=== PATIENT | male | born 1950 | race Caucasian/White ===

== ENCOUNTER → 2021-04-15 | Outpatient (CLI) | payer OTHER ==
[~2021-04-15] MED LIST: HIGH BLOOD PRESSURE
== END ==
LOC: M.CT 12:51
PROVIDERS: ATTEND Nurse Practitioner Family
DX: Z13.6 Encounter for screening for cardiovascular disorders (principal); I25.10 Atherosclerotic heart disease of native coronary artery without angina pectoris

== ENCOUNTER 2021-05-11 08:51 | Observation (INO) | payer MEDICARE, OTHER ==
[2021-05-11] VITALS (9 sets, daily range): BP systolic 123–167; BP diastolic 62–88
[~2021-05-11] VITALS: Ht 182.9 cm; Wt 104.3 kg
[~2021-05-11 08:51] MED LIST changes: +AMARYL4 MG PO; +ASA81BEC PO; +COZAAR100 MG PO; +EC-NAPROSYN500 M1 PO; +FISH OIL 1,0001 EAC9 PO; +MELATONIN10 M3 PO; +METFORMIN HCL1000 MG PO; +TOPROL XL50 MG PO
[2021-05-11 09:48] LABS: HEMATOCRIT 42.9 % (42.0-52.0); HEMOGLOBIN 14.9 gm/dL (14.0-18.0); MCH 31.2 pg (26.0-34.0); MCHC 34.7 g/dL (28.0-37.0); MCV 89.9 fL (80.0-100.0); MPV 7.7 fl. (7.2-11.1); RBC 4.77 mil/uL (4.50-6.00); RDW-CV 13.1 % (10.5-14.5); WBC 8.5 thou/uL (4.0-11.0)
[2021-05-11 10:04] LABS: ANION GAP 7 mmol/L (7-16); BUN 16 mg/dL (7-18); CALCIUM 9.2 mg/dL (8.5-10.1); CHLORIDE 100 mmol/L (98-107); CO2 29 mmol/L (21-32); CREATININE 0.9 mg/dL (0.6-1.3); GLUCOSE 186 mg/dL (70-99); SODIUM 136 mmol/L (136-145)
[2021-05-11 10:09] LABS: ALBUMIN 4.2 g/dL (3.4-5.0); ALKALINE PHOSPHATASE 68 U/L (46-116); CHOLESTEROL 186 mg/dL (<200); HDL CHOLESTEROL 53 mg/dL (>40); LDL CHOLESTEROL 111 mg/dL (<100); SERUM ASSESSMENT Clear; SGOT 23 U/L (15-37); SGPT 51 U/L (30-65); TC:HDL 3.5 Ratio (Not establshd); TOTAL BILIRUBIN 0.3 mg/dL (<0.1-1.0); TOTAL PROTEIN 7.9 g/dL (6.4-8.2); TRIGLYCERIDE 114 mg/dL (<150); VLDL 23 mg/dL (<40)
[2021-05-11 10:38] LABS: APTT 27.4 Seconds (25.0-31.3); PROTIME 10.3 Seconds (9.20-11.50)
--- NOTE | 2021-05-11 13:39 | CARD ---
[address] [address] CARDIAC CATH REPORT Name: MARQUES DUNN Room: [address] M.R.#: [id number] Admission: 05/11/21 Attend Phys: Tonny Gifford MD, Discharge: Date of : 54 Report #: [id number] THIS REPORT FOR: cc: CROW STEWART DEBRA L FNP Holkins, John M. MD [facility] ~ APPROVED REPORT Study performed: 05/11/2021 09:42:32 Patient Details Patient Status: Out-Patient Room #: The patient is a 70 year-old male Event Personnel Tonny Gifford Consumer Services Advisor, Christine Herr RN RN, Jennie Moyer PATROL COMMUNITY SERVICE OFFICER Scrub, Bradly Duque PATROL COMMUNITY SERVICE OFFICER Monitor, Abby Pedroza, SREE Monitor Procedures Performed Left heart catheterization left ventriculography and selective coronary arteriography and percutaneous coronary intervention with angioplasty atherotomy/atherectomy and stenting of the mid LAD Indication Dyspnea, Chest pain, Markedly increased coronary calcium score on chest CT Risk Factors Hypertension, Diabetes Admission/Lab Medications/Medications given during procedure 0.9% Sodium Chloride IV 75 ml per hr, Oxygen Nasal cannula 2 l per min, Lidocaine Subcut 10 ml, Angiomax IV 16 ml, Angiomax Drip IV 36.57 ml per hr, 0.9% Sodium Chloride IV 125 ml per hr, Hydralazine (Apresoline) IV 10 mg, Aspirin PO 162 mg, Effient PO 60 mg Procedure Narrative The patient was brought electively to the Cardiac Catheterization Laboratory and was prepped and draped in a sterile manner. The right femoral was infiltrated with 2% Lidocaine subcutaneous anesthesia. A [employer] 6 FR sheath was inserted into the right femoral artery. Coronary angiography was performed [place] [address] CARDIAC CATH REPORT Name: MARQUES DUNN Room: [address] King#: [id number] Admission: 05/11/21 Attend Phys: Tonny Gifford MD, Discharge: Date of : 54 Report #: [id number] catheters. The right coronary system was accessed and visualized with a Diagnostic 6Fr JR4 catheter. The left coronary system was accessed and visualized with a Diagnostic 6Fr JL4 catheter. The left ventricle was accessed and visualized with a Diagnostic straight pigtail catheter. Left ventricular/Aortic Valve gradient assessed via catheter pullback. Left ventriculogram was performed in MATA projection. Closure device was deployed with a Fr Angioseal STS 6Fr. The patient tolerated the procedure well and there were no complications associated with the procedure. There was no hematoma. Intraoperative Conscious Sedation Sedation start time: 1016 Case end Time: 1136 Fentanyl 25 mcg Versed 2 mg Fluoro Time: 15.3 minutes Dose: DAP [id number] cGycm2 2678 mGy Contrast Type and Amount: Visipaque 250 mL Coronary Angiography The patient's coronary anatomy is left dominant. Diagnostic Cath Left Main 0% narrowing LAD 40% proximal narrowing with 90% mid vessel stenosis and 50% distal LAD narrowing Diagonal 1 80% narrowing in the midportion of the small first diagonal Circumflex Large dominant vessel with 70% tubular first marginal narrowing and 80% narrowing of the midportion of the posterior descending branch Right Coronary Small nondominant vessel with 0% narrowing Left Ventriculography The left ventricle is normal in size with normal contractility. The left ventricular ejection fraction is estimated to be 65%. Left ventricular wall motion abnormalities are not present. There is no mitral insufficiency. Hemodynamics The aortic pressure is 102/52 mmHg with a mean of 66 mmHg. The left ventricular pressure is 106/-3 mmHg with a mean of mmHg. The left ventricular end diastolic pressure is 6 mmHg. There was no gradient across the aortic [place] [address] CARDIAC CATH REPORT Name: MARQUES DUNN [address] M#: [id number] Admission: 05/11/21 Attend Phys: Tonny Gifford MD, Discharge: Date of : 54 Report #: [id number] PCI Technique Lesion Anticoagulation was achieved with Angiomax. Patient was preloaded with Angiomax IV 16 ml. Percutaneous coronary intervention was performed on the mid left anterior descending artery segment. The lesion stenosis prior to intervention was 90% with JERMAINE 3 flow. A 6FR LAUNCHER EBU 3.5 Guide Catheter was used to engage the ostium. A IG: BMW 190cm Interventional Guidewire was used to cross the lesion. BALLOON DILATION A Balloon catheter NC Trek RX 2.5 X 12 was inserted and inflated up to 18.00atm for 18seconds. Additional Inflation: 20.00atm for 13seconds. Additional Inflation: 18.00atm for 9seconds. Additional Inflation: 20.00 john for 11 seconds. An Angiosculpt PTCA 2.5 X 10mm cutting balloon was inserted and inflated up to 14 john for 30 seonds. STENT DEPLOYMENT A stent [place] RX Stent 2.5X22mm was inserted and inflated up to 12.00atm for 8seconds. Additional Inflation: 16.00atm for 8seconds. Additional Inflation: 17.00atm for 9seconds. Final angiography reveals 0 % stenosis with JERMAINE 3 flow. Conclusion 1. Significant multivessel coronary artery disease characterized by the following: A 40% proximal LAD narrowing with 90% calcified mid vessel stenosis and 50% distal LAD narrowing B large dominant circumflex with 70% tubular narrowing of the the first marginal branch and 80% stenosis of the midportion of the posterior descending branch of the dominant circumflex 2. Normal left ventricular systolic function estimated ejection fraction being 65% 3 normal left-sided hemodynamic study 4. Successful PCI with angioplasty atherotomy/atherectomy and deployment of a drug-eluting stent at the site of 90% calcified mid LAD stenosis with 0% residual narrowing and JERMAINE-3 [place] [address] CARDIAC CATH REPORT Name: MARQUES DUNN SUSI Room: [address] Tanner M.R.#: [id number] Admission: 05/11/21 Attend Phys: Tonny Gifford MD, Discharge: Date of : 54 Report #: [id number] vessel Recommendations Cardiac Risk Reduction Program Aggressive Medical Therapy Medications Administered Aspirin (any) Prasugrel Diagnostic Cath Approved by: Tonny Gifford MD Date/Time: 05/11/2021 13:35:18 <ELECTRONICALLY SIGNED> By: Tonny Gifford MD, FACC 05/11/21 1339 38 1339Tonny Gifford MD, FACC /INF
--- NOTE | 2021-05-11 13:57 | EKG ---
[place] [address] ELECTROCARDIOGRAM REPORT Name: SHAUNMARQUESADAM BEASLEYY Room: [address] M.R.#: [id number] Admission: 05/11/21 Attend Phys: Gurdeep Miles Discharge: Date of : 54 Date of Service: 05/11/21 0938 Report #: [id number] THIS REPORT FOR: //name// [facility] Test Date: 2021-05-11 Test Time: 09:38:03 Pat Name: MARQUES DUNN Department: Room: [facility] Gender: M Campaign Marketing Manager: : 1950 Requested By: Tonny Gifford Order Number: [id number] MD: Tonny Gifford Measurements Intervals [place] Rate: 70 P: 28 NC: 160 QRS: -13 QRSD: 106 T: 62 QT: 378 QTc: 408 Interpretive Statements Sinus rhythm Probable left atrial enlargement Minimal ST elevation, anterior leads No previous ECG available for comparison Electronically Signed On 05-11-2021 13:56:57 SHOE LASTER by Tonny Gifford [email or web address] <ELECTRONICALLY SIGNED> By: Tonny Gifford MD, [facility] 05/11/21 1356 0938 0938 Tonny Gifford MD, [facility] /EPI
--- NOTE | 2021-05-11 14:06 | EKG ---
[place] [address] ELECTROCARDIOGRAM REPORT Name: SHAUNMARQUES GOLDMAN Room: [address] M.R.#: [id number] Admission: 05/11/21 Attend Phys: Gurdeep Miles Discharge: Date of : 54 Date of Service: 05/11/21 1152 Report #: [id number] THIS REPORT FOR: //name// [facility] Test Date: 2021-05-11 Test Time: 11:52:00 Pat Name: MARQUES DUNN Department: Room: [facility] Gender: M Elevator Dispatcher: JOSE GUADALUPE : 1950 Requested By: Tonny Gifford Order Number: [id number] Reading MD: Tonny Gifford Measurements Intervals [place] Rate: 70 P: 29 SD: 159 QRS: -8 QRSD: 108 T: 65 QT: 395 QTc: 427 Interpretive Statements Sinus rhythm Probable left atrial enlargement Minimal ST elevation, anterior leads compatible with early repolarization and normal variant Compared to ECG 05/11/2021 09:38:03 No significant changes Electronically Signed On 05-11-2021 14:06:49 HYDROELECTRIC OPERATOR by Tonny Gifford [email or web address] <ELECTRONICALLY SIGNED> By: Tonny Gifford MD, FAC 05/11/21 1406 1152 1152 Tonny Gifford MD, FAC /EPI
[2021-05-12] VITALS: BP 128/64
[2021-05-12 04:00] VITALS: BP 124/75
[2021-05-12 04:10] LABS: HEMATOCRIT 39.5 % (42.0-52.0); HEMOGLOBIN 13.6 gm/dL (14.0-18.0); MCH 31.1 pg (26.0-34.0); MCHC 34.3 g/dL (28.0-37.0); MCV 90.5 fL (80.0-100.0); MPV 7.7 fl. (7.2-11.1); RBC 4.37 mil/uL (4.50-6.00); RDW-CV 13.4 % (10.5-14.5); WBC 8.9 thou/uL (4.0-11.0)
[2021-05-12 04:49] LABS: ALBUMIN 3.6 g/dL (3.4-5.0); CALCIUM 8.8 mg/dL (8.5-10.1); CK-MB MASS 1.2 ng/mL (<0.5-3.6); CREATININE 0.9 mg/dL (0.6-1.3); POTASSIUM 3.7 mmol/L (3.5-5.1); TOTAL BILIRUBIN 0.4 mg/dL (<0.1-1.0); TOTAL PROTEIN 6.5 g/dL (6.4-8.2)
--- NOTE | 2021-05-12 07:10 | NUR ---
CHANGE OF SHIFT REPORT GIVEN PATIENT SEEN AT BEDSIDE, IN BED ASLEEP ASSUMED PATIENT CARE
[2021-05-12 08:00] VITALS: BP 133/66
[2021-05-12] MEDS ORDERED: EFFIENT10 MG PO (08:15)
[2021-05-12] MEDS ORDERED: ATORVASTATIN CA20 MG PO (08:16)
[2021-05-12] MEDS ORDERED: NITROGLYCERIN0.4 MG SUBLING (08:18)
[2021-05-12 09:45] VITALS: BP 133/66
--- NOTE | 2021-05-12 10:10 | NUR ---
DISCHARGE TO HOME DC INFORMATION GIVEN, SIGNED PAPERWORK GIVEN IV AND HEART MONITOR REMOVED PERSONAL BELONGINGS RETURNED ASSISTED OUT AMBULATORY TO WAITING CAR
--- NOTE | 2021-05-12 11:54 | EKG ---
[place] [address] ELECTROCARDIOGRAM REPORT Name: SHAUNMARQUESADAM GOLDMAN Room: [address] M.R.#: [id number] Admission: 05/11/21 Attend Phys: Gurdeep Miles Discharge: 05/12/21 Date of : 54 Date of Service: 05/12/21 0530 Report #: [id number] THIS REPORT FOR: //name// [facility] Test Date: 2021-05-12 Test Time: 05:30:09 Pat Name: MARQUES DUNN Department: Room: [facility] Gender: M Fabric Lay Out Worker: MELISSA : 1950 Requested By: Tonny Gifford Order Number: [id number] Reading MD: Tonny Gifford Measurements Intervals [place] Rate: 67 P: 30 DC: 152 QRS: -19 QRSD: 105 T: 62 QT: 387 QTc: 409 Interpretive Statements Sinus rhythm Probable left atrial enlargement Borderline left axis deviation High ST segment takeoff over the anterior precordium; compatible early repolarization and normal variant Since the prior tracing, no significant change is noted Electronically Signed On 05-12-2021 11:54:03 SAP SENIOR DEVELOPER by Tonny Gifford [email or web address] <ELECTRONICALLY SIGNED> By: Tonny Gifford MD, FACC 05/12/21 1154 0530 0530 Tonny Gifford MD, FACC /EPI
--- NOTE | 2021-05-12 12:15 | D ---
[address] [address] DISCHARGE SUMMARY Name: MARQUES DUNN Room: [address] Tanner Malik#: [id number] Admission: 05/11/21 Attend Phys: Tonny Gifford MD, Discharge: 05/12/21 Date of : 54 Report #: [id number] THIS REPORT FOR: cc: CROW STEWART DEBRA L FNP Holkins, John M. MD [facility] ~ DATE OF DISCHARGE: 05/12/2021 FINAL DISCHARGE DIAGNOSES: 1. Markedly abnormal CT scan with markedly increased coronary calcium score. 2. Coronary artery disease. 3. Hypertension. 4. Hyperlipidemia. 5. Diabetes mellitus (type 2). 6. Status post percutaneous coronary intervention to the left anterior descending with atherectomy and stenting of the mid left anterior descending. PROCEDURES: On 05/11/2021 -- left heart catheterization, left ventriculography, selective coronary arteriography, percutaneous coronary intervention with deployment of a drug-eluting stent in the mid LAD after angioplasty and atherectomy at that site. HOSPITAL COURSE: The patient is a pleasant 70-year-old male with a number of risk factors for coronary disease including hypertension, hypercholesterolemia and diabetes. He recently had a markedly abnormal coronary calcium score of 1673. He has noted some chest discomfort and dyspnea with exertion. In the context of the risk factors and markedly increased coronary calcium score, cardiac catheterization was performed on 05/11/2021. That study revealed significant coronary disease with 90% calcified mid LAD stenosis, 70% tubular first marginal stenosis in the dominant circumflex and 80% posterior descending stenosis in the dominant circumflex. The right coronary artery was small and nondominant. LV function was normal with estimated ejection fraction of 65%. Given this data, I elected to perform PCI with angioplasty, atherotomy/atherectomy and deployment of a 2.5 x 22 mm [place] drug-eluting stent in the mid LAD with 0% residual narrowing and JERMAINE 3 flow to the distal vessel. He did well post-procedurally with good hemostasis at the right [place] [address] DISCHARGE SUMMARY Name: MARQUES DUNN [address] M#: [id number] Admission: 05/11/21 Attend Phys: Tonny Gifford MD, Discharge: 05/12/21 Date of : 54 Report #: [id number] Lab revealed a sodium of 138, potassium 3.7, BUN 16, creatinine 0.9, glucose 166. Hemoglobin 13.6, white blood cell count 8900 with 258,000 platelets. Lipids were abnormal with cholesterol 186, LDL of 111, triglycerides 114, HDL 53. The patient ambulated in the hallways without difficulty and there was good hemostasis at the right femoral site of catheterization. DISCHARGE MEDICATIONS: He was discharged home on the following medications: Prasugrel or Effient 10 mg daily with a 60 mg periprocedural dose having been given, atorvastatin 20 mg at bedtime, p.r.n. sublingual nitroglycerin 0.4 mg, aspirin 81 mg daily, glimepiride 4 mg daily, losartan 100 mg daily, melatonin 10 mg daily, metformin 1000 mg b.i.d. to be resumed on 05/13/2021, metoprolol succinate 50 mg daily, Naprosyn 500 mg b.i.d. and fish oil 1200 mg b.i.d. The patient is scheduled to return to see me in 4-6 weeks in the office for followup. Therefore, the patient is discharged home in stable condition on the aforementioned medications with followup as described above. <ELECTRONICALLY SIGNED> By: Tonny Gifford MD, FACC 05/12/21 1215 0839 0953Tonny Gifford MD, FACC /nt
== END 2021-05-12 10:10 | disposition home or self-care (01) ==
LOC: M.CL 08:51 → M.TBA-CV 11:43 → M.2W 14:18
PROVIDERS: ADMIT Internal Medicine; ATTEND Internal Medicine
DX: I25.10 Atherosclerotic heart disease of native coronary artery without angina pectoris (principal); E78.5 Hyperlipidemia, unspecified; E11.9 Type 2 diabetes mellitus without complications; I10 Essential (primary) hypertension; Z20.822 Contact with and (suspected) exposure to COVID-19; Z79.899 Other long term (current) drug therapy